=== PATIENT | female | born 1995 | race Caucasian/White ===

== ENCOUNTER 2018-10-21 12:08 | Emergency (ER) | payer SELFPAY ==
[2018-10-21 12:57] VITALS: BP 132/81; PULSE 78; RESP 18; TEMP 98.7; O2SAT 100
--- NOTE | 2018-10-21 12:59 | C.PDOC ---
History Of Present Illness 23 y/o female presents to the ED complaining of dysuria since yesterday morning. Associated with urinary frequency and urgency. Patient noted yesterday morning her urine appeared darker Patient reports having similar symptoms in the past with UTI. She tried taking AZO with some relief yesterday afternoon. Patient also reports having unprotected sex x2 with two different partners the night prior to onset of symptoms. She denies any fever, chills, nausea, vomiting, diarrhea, or constipation. Also denies any genital lesions or vaginal discharge. Time Seen by Provider: 10/21/18 12:36 Chief Complaint (Nursing): Female Genitourinary History Per: Patient History/Exam Limitations: no limitations Onset/Duration Of Symptoms: Days (x 2) Current Symptoms Are (Timing): Still Present Associated Symptoms: Urinary Symptoms Past Medical History Reviewed: Historical Data, Nursing Documentation, Vital Signs Vital Signs: Last Vital Signs Temp 98.7 F 10/21/18 12:33 Pulse 78 10/21/18 12:33 Resp 18 10/21/18 12:33 BP 132/81 10/21/18 12:33 Pulse Ox 100 10/21/18 12:33 - Medical History PMH: No Chronic Diseases Surgical History: No Surg Hx Family History: States: No Known Family Hx - Social History Hx Alcohol Use: Yes Hx Substance Use: No - Immunization History Hx Tetanus Toxoid Vaccination: No Hx Influenza Vaccination: No Hx Pneumococcal Vaccination: No Review Of Systems Except As Marked, All Systems Reviewed And Found Negative. Constitutional: Negative for: Fever, Chills Gastrointestinal: Negative for: Nausea, Vomiting, Abdominal Pain, Diarrhea, Constipation Genitourinary: Positive for: Dysuria, Frequency, Hematuria (x 1). Negative for: Incontinence, Vaginal Discharge, Vaginal Bleeding, Pelvic Pain, Rash Musculoskeletal: Negative for: Back Pain Neurological: Negative for: Weakness, Numbness Physical Exam - Physical Exam Appears: Well, Non-toxic, No Acute Distress Skin: Warm, Dry Head: Atraumatic, Normacephalic Eye(s): bilateral: Normal Inspection, PERRL, EOMI Oral Mucosa: Moist Neck: Normal ROM Chest: Symmetrical Cardiovascular: Rhythm Regular, No Murmur Respiratory: Normal Breath Sounds, No Rales, No Rhonchi, No Wheezing Gastrointestinal/Abdominal: Soft, No Tenderness (no suprapubic tenderness), No Distention, No Guarding Back: No CVA Tenderness, No Vertebral Tenderness Extremity: Bilateral: Atraumatic, Normal Color And Temperature Neurological/Psych: Oriented x3, Normal Speech ED Course And Treatment O2 Sat by Pulse Oximetry: 100 (RA) Pulse Ox Interpretation: Normal Medical Decision Making Medical Decision Making: Impression: Dysuria, Frequency, Urgency Differential includes: UTI vs STD Plan: --Urinalysis --Urine culture --GC/chlamydia UA shows + leuks, WBC, and bacteria. Discussed findings with patient, will treat UTI with Macrobid. Of note, patient does not want STD testing today, G/C canceled. States she will go to STD clinic when she arrives home. Disposition - Disposition Referrals: [facility] [Outside] [facility] [Outside] Disposition: HOME/ ROUTINE Disposition Time: 14:00 Condition: STABLE Additional Instructions: please follow up with your doctor/clinic. return to any er with worsening symptoms or concerns. Prescriptions: Nitrofurantoin Macrocrystals [Macrobid] 100 mg PO BID #14 cap Instructions: Urinary Tract Infections in Adults Forms: [facility] (German) - Clinical Impression Clinical Impression: UTI (urinary tract infection) - Scribe Statement The provider has reviewed the documentation as recorded by the oJsh Pollack Provider Attestation: All medical record entries made by the Armondibstephen were at my direction and personally dictated by me. I have reviewed the chart and agree that the record accurately reflects my personal performance of the history, physical exam, medical decision making, and the department course for this patient. I have also personally directed, reviewed, and agree with the discharge instructions and disposition.
[2018-10-21 13:12] LABS: SQUAMOUS EPITHIAL 2 /hpf (0-5); URINE BILIRUBIN NEGATIVE (NEGATIVE); URINE BLOOD NEGATIVE (NEGATIVE); URINE CLARITY Clear (Clear); URINE GLUCOSE (UA) NORMAL (Normal); URINE LEUKOCYTE ESTERASE 1+ Leu/uL (Negative); URINE PROTEIN NEGATIVE (NEGATIVE)
[2018-10-21 13:13] LABS: URINE COLOR ORANGE (YELLOW)
[2018-10-21 13:14] LABS: URINE BACTERIA OCC (<OCC)
== END 2018-10-21 13:38 | disposition home or self-care (01) ==
LOC: C.ER 12:08
DX: N39.0 Urinary tract infection, site not specified (principal)